=== PATIENT | female | born 1995 | race Caucasian/White ===

== ENCOUNTER 2017-07-14 05:13 | Emergency (ER) | payer OTHER ==
[2017-07-14 05:15] VITALS: BP 137/85
[2017-07-14] MEDS ORDERED: ONDANSETRON PF 4 MG/2 ML VIAL. ONE (05:25)
[2017-07-14] MEDS ORDERED: FAMOTIDINE 20 MG/2 ML VIAL ONE (05:26)
--- NOTE | 2017-07-14 05:28 | ED.ADGEN ---
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 She reports multiple episodes of vomiting and now dry heaves. Her significant other also ate same food but he is not sick. Patient is exposed to multiple patient's that are ill. No recent travel. History of immunosuppression. No history of diarrhea-patient reports she is usually constipated. No history of abdomen surgeries. Pain to the abdomen is generalized. Review of Systems Review of Systems Constitutional: Denies fever or chills [] Eyes: Denies change in visual acuity, redness, or eye pain [] HENT: Denies nasal congestion or sore throat [] Respiratory: Denies cough or shortness of breath [] Cardiovascular: No additional information not addressed in HPI [] GI: History of abdominal pain, nausea, vomiting, and constipation. : Denies dysuria or hematuria [] Musculoskeletal: Denies back pain or joint pain [] Integument: Denies rash or skin lesions [] Neurologic: Denies headache, focal weakness or sensory changes [] Endocrine: Denies polyuria or polydipsia [] All other systems were reviewed and found to be within normal limits, except as documented in this note. Family History Family History Noncontributory Current Medications Current Medications Current Medications Medications (Trade) Dose Ordered Sig/Gil Start Time Stop Time Status Last Admin Dose Admin Diphenhydramine HCl (Benadryl) 25 mg 1X ONCE 07/14/17 06:15 07/14/17 06:16 DC 07/14/17 06:04 25 MG Famotidine (Pepcid Vial) 20 mg 1X ONCE 07/14/17 05:45 07/14/17 06:03 DC 07/14/17 06:00 20 MG Ketorolac Tromethamine (Toradol) 30 mg 1X ONCE 07/14/17 06:15 07/14/17 06:16 DC 07/14/17 06:05 30 MG Lactated Ringer's 1,000 ml @ 1,000 mls/hr Q1H 07/14/17 05:45 07/14/17 06:03 DC 07/14/17 05:35 1,000 MLS/HR Ondansetron HCl (Zofran) 8 mg 1X ONCE 07/14/17 05:45 07/14/17 06:03 DC 07/14/17 06:00 8 MG Trimethoprim/ Sulfamethoxazole (Bactrim Ds) 1 tab 1X ONCE 07/14/17 07:00 07/14/17 07:01 DC Allergies Allergies Allergies Coded Allergies Type Severity Reaction Last Updated Verified zolmitriptan Allergy Intermediate 07/14/17 Yes No known drug allergies Physical Exam Physical Exam Constitutional: Well developed, well nourished, moderate distress, non-toxic appearance. [] HENT: Normocephalic, atraumatic, bilateral external ears normal, oropharynx dry, , no oral exudates, nose normal. [] Eyes: PERRLA, EOMI, conjunctiva normal, no discharge. [] Neck: Normal range of motion, no tenderness, supple, no stridor. [] Cardiovascular:Heart rate regular rhythm, no murmur [] Lungs & Thorax: Bilateral breath sounds equal at apexes on auscultation [] Abdomen: Bowel sounds hyperactive,, soft, generalized tenderness, no masses, no pulsatile masses. No rebound Skin: Warm, dry, no erythema, no rash. [] Back: No tenderness, no CVA tenderness. [] Extremities: No tenderness, no cyanosis, no clubbing, ROM intact, no edema. Negative heel tap and obturator sign Neurologic: Alert and oriented X 3, normal motor function, normal sensory function, no focal deficits noted. [] Psychologic: Affect anxious ,judgement normal, mood normal. [] Current Patient Data Vital Signs Vital Signs Date Time Temp Pulse Resp B/P (MAP) Pulse Ox O2 Delivery O2 Flow Rate FiO2 07/14/17 05:15 98.6 122 20 100 Room Air Lab Results Laboratory Tests Test 07/14/17 05:25 07/14/17 05:40 07/14/17 06:53 Urine Collection Type Unknown Urine Color Yellow Urine Clarity Clear Urine pH 6.5 Urine Specific [place] 1.020 Urine Protein Neg (NEG-TRACE) Urine Glucose (UA) Neg mg/dL (NEG) Urine Ketones (Stick) Neg mg/dL (NEG) Urine Blood Small (NEG) Urine Nitrite Neg (NEG) Urine Bilirubin Neg (NEG) Urine Urobilinogen Dipstick 0.2 mg/dL (0.2 mg/dL) Urine Leukocyte Esterase Neg (NEG) Urine RBC 1-2 /HPF (0-2) Urine WBC 0 /HPF (0-4) Urine Squamous Epithelial Cells Mod /LPF Urine Bacteria Mod /HPF (0-FEW) Urine Hyaline Casts Occ /HPF Urine Mucus Slight /LPF White Blood Count 17.2 x10^3/uL (4.0-11.0) H Red Blood Count 5.54 x10^6/uL (3.50-5.40) H Hemoglobin 15.0 g/dL (12.0-15.5) Hematocrit 44.9 % (36.0-47.0) Mean Corpuscular Volume 81 fL (79-100) Mean Corpuscular Hemoglobin 27 pg (25-35) Mean Corpuscular Hemoglobin Concent 34 g/dL (31-37) Red Cell Distribution Width 13.2 % (11.5-14.5) Platelet Count 302 x10^3/uL (140-400) Neutrophils (%) (Auto) 79 % (31-73) H Lymphocytes (%) (Auto) 9 % (24-48) L Monocytes (%) (Auto) 10 % (0-9) H Eosinophils (%) (Auto) 1 % (0-3) Basophils (%) (Auto) 0 % (0-3) Neutrophils # (Auto) 13.6 x10^3uL (1.8-7.7) H Lymphocytes # (Auto) 1.6 x10^3/uL (1.0-4.8) Monocytes # (Auto) 1.8 x10^3/uL (0.0-1.1) H Eosinophils # (Auto) 0.1 x10^3/uL (0.0-0.7) Basophils # (Auto) 0.0 x10^3/uL (0.0-0.2) Segmented Neutrophils % 84 % (35-66) H Band Neutrophils % 2 % (0-9) Lymphocytes % 7 % (24-48) L Monocytes % 6 % (0-10) Eosinophils % 1 % (0-5) Platelet Estimate Adequate (ADEQUATE) Sodium Level 142 mmol/L (136-145) Potassium Level 3.5 mmol/L (3.5-5.1) Chloride Level 104 mmol/L (98-107) Carbon Dioxide Level 28 mmol/L (21-32) Anion Gap 10 (6-14) Blood Urea Nitrogen 10 mg/dL (7-20) Creatinine 0.7 mg/dL (0.6-1.0) Estimated GFR (Cockcroft-Gault) 103.7 Glucose Level 107 mg/dL (70-99) H Calcium Level 9.3 mg/dL (8.5-10.1) Total Bilirubin 0.2 mg/dL (0.2-1.0) Direct Bilirubin 0.1 mg/dL (0.0-0.2) Aspartate Amino Transferase (AST) 56 U/L (15-37) H Alanine Aminotransferase (ALT) 133 U/L (14-59) H Alkaline Phosphatase 72 U/L (46-116) Total Protein 8.2 g/dL (6.4-8.2) Albumin 4.0 g/dL (3.4-5.0) Lipase 146 U/L (73-393) POC Urine HCG, Qualitative hcg negative (Negative) EKG EKG [] Radiology/Procedures Radiology/Procedures [] Course & Med Decision Making Course & Med Decision Making Pertinent Labs and Imaging studies reviewed. (See chart for details). . Labs pending . She had push clear fluids. No solids no milk products for 2 days. Allow bowel rest. Take Zofran 8 mg up 4 times a day for nausea and vomiting. May take Tylenol and ibuprofen pain. Follow-up pending cultures. Bactrim DS twice a day for 7 days. Return if any concerns. [] Final Impression Final Impression 1. Nausea Vomiting- gastroenteritis 2. Abdomen Pain[] 3. Urinary tract infection. 4. Elevated LFTs 5. Leukocytosis 6. Dehydration Problems: Dragon Disclaimer Dragon Disclaimer This electronic medical record was generated, in whole or in part, using a voice recognition dictation system. LETITIA AMAYA MD Jul 14, 2017 05:27
[2017-07-14] MEDS ORDERED: diphenhydrAMINE 50 MG/ML VIAL ONE (05:29)
[2017-07-14] MEDS ORDERED: ONDANSETRON PF 4 MG/2 ML VIAL. IV ONE (05:45)
[2017-07-14] MEDS ORDERED: IV RINGERS SOLUTION,LACTATED 1,000 ML IV SCH (05:45)
[2017-07-14] MEDS ORDERED: FAMOTIDINE 20 MG/2 ML VIAL IVP ONE (05:45)
[2017-07-14] MEDS ORDERED: KETOROLAC 30 MG/ML VIAL. ONE (05:51)
[2017-07-14 06:11] LABS: BASO % 0 % (0-3); EOS # 0.1 x10^3/uL (0.0-0.7); EOS % 1 % (0-3); HEMATOCRIT 44.9 % (36.0-47.0); LYMPH # 1.6 x10^3/uL (1.0-4.8); LYMPH % 9 % (24-48); MEAN CORPUSCULAR HEMOGLOBIN 27 pg (25-35); MEAN CORPUSCULAR HGB CONC 34 g/dL (31-37); MEAN CORPUSCULAR VOLUME 81 fL (79-100); MONO # 1.8 x10^3/uL (0.0-1.1); MONO % 10 % (0-9); NEUT # 13.6 x10^3uL (1.8-7.7); NEUT % 79 % (31-73); PLATELET COUNT 302 x10^3/uL (140-400); RED BLOOD COUNT 5.54 x10^6/uL (3.50-5.40); RED CELL DISTRIBUTION WIDTH 13.2 % (11.5-14.5); WHITE BLOOD COUNT 17.2 x10^3/uL (4.0-11.0)
[2017-07-14] MEDS ORDERED: diphenhydrAMINE 50 MG/ML VIAL IVP ONE (06:15)
[2017-07-14] MEDS ORDERED: KETOROLAC 30 MG/ML VIAL. IV ONE (06:15)
[2017-07-14 06:20] LABS: CALCIUM 9.3 mg/dL (8.5-10.1); CREATININE 0.7 mg/dL (0.6-1.0); DIRECT BILIRUBIN 0.1 mg/dL (0.0-0.2); GFR 103.7; POTASSIUM 3.5 mmol/L (3.5-5.1); TOTAL BILIRUBIN 0.2 mg/dL (0.2-1.0); TOTAL PROTEIN 8.2 g/dL (6.4-8.2)
[2017-07-14 06:26] LABS: BACTERIA,URINE MOD /HPF (0-FEW); BILIRUBIN,URINE NEG (NEG); CLARITY,URINE CLEAR; COLOR,URINE YELLOW; GLUCOSE,URINE NEG (NEG); HYALINE CASTS, URINE OCC /HPF; NITRITE,URINE NEG (NEG); SQUAMOUS EPITHELIAL CELL,UR MOD /LPF; UROBILINOGEN,URINE 0.2 mg/dL (0.2 mg/dL); WBC,URINE 0 /HPF (0-4)
[2017-07-14] MEDS ORDERED: SULF1TAB24 PO (06:38)
[2017-07-14] MEDS ORDERED: HYDR-79 PO (06:38)
[2017-07-14] MEDS ORDERED: ONDA8TAB12 PO (06:38)
[2017-07-14] MEDS ORDERED: SMZ/TMP 800/160MG TABLET. PO ONE (07:00)
[2017-07-14 07:17] LABS: % BANDS 2 % (0-9); % EOS 1 % (0-5); % LYMPHS 7 % (24-48); % MONOS 6 % (0-10); % SEGS 84 % (35-66); PLT ESTIMATE ADEQUATE (ADEQUATE)
[2017-07-15 07:15] LABS: HCV ANTIBODY <0.1 s/co ratio (0.0-0.9); HEP A IGM ABDY Negative (Negative)
== END 2017-07-14 06:49 | disposition home or self-care (01) ==
LOC: ER 05:13
DX: K52.9 Noninfective gastroenteritis and colitis, unspecified (principal); N39.0 Urinary tract infection, site not specified; E86.0 Dehydration; R79.89 Other specified abnormal findings of blood chemistry; D72.829 Elevated white blood cell count, unspecified; Z88.8 Allergy status to other drugs, medicaments and biological substances
CPT/HCPCS: 36415; 80048; 80074; 80076; 81001; 81025; 83690; 85007; 85025; 87086; 96361; 96374; 96375; 99284; J1200; J1885; J2405; J7120; S0028

== ENCOUNTER 2017-10-07 17:35 | Emergency (ER) | payer OTHER ==
[~2017-10-07] VITALS: Ht 160 cm; Wt 76.7 kg
[~2017-10-07 17:35] MED LIST: HYDR-79 PO; ONDA8TAB12 PO; SULF1TAB24 PO
--- NOTE | 2017-10-07 18:11 | EKG ---
[address] [address] Test Date: 2017-10-07 Test Time: 17:44:49 Pat Name: JAYLENE WONG Department: Room: Gender: F [employer] Operator: MICHEL : 1995 Requested By: DALI WOOD Order Number: [id number] Reading MD: Measurements Intervals [place] Rate: 87 P: 28 WI: 146 QRS: 9 QRSD: 86 T: 19 QT: 424 QTc: 511 Interpretive Statements SINUS RHYTHM PROLONGED QT NO SPECIFIC ECG ABNORMALITIES RI6.01 No previous ECG available for comparison
[2017-10-07] MEDS ORDERED: IV NORMAL SALINE 1,000ML 1,000 ML IV ONE (18:15)
[2017-10-07] MEDS ORDERED: diphenhydrAMINE 50 MG/ML VIAL IVP ONE (18:30)
[2017-10-07] MEDS ORDERED: DEXAMETHASONE SOD PHOS 10 MG/ML VIAL IV ONE (18:30)
[2017-10-07] MEDS ORDERED: METOCLOPRAMIDE HCL 10 MG/2 ML VIAL. IV ONE (18:30)
--- NOTE | 2017-10-07 18:30 | PHYS DOC ---
Past History Past Medical History: Constipation, Other Past Surgical History: Tonsillectomy Alcohol Use: None Drug Use: None Adult General Chief Complaint Chief Complaint: Palpitations HPI HPI Patient is a 22 year old F who presents with headache/palpitations/anxiety. Patient states she woke up this morning with a slight headache as a day progressive got worse. Patient went to move this afternoon and after the movie the patient stated she had an increased headache with heart palpitations and felt her heart racing. Patient states she has a history of anxiety however she does not think this is anxiety attack. Patient denies any fevers. Patient denies any cough/cold/congestion. Patient denies any chest pain or shortness of breath. Patient describes the headache as a frontal nonradiating in her vision is unaffected. Patient states she does have a history of headaches however has not been formally diagnosed with migraines. Patient states this headache is similar to her previous headaches. Patient states usually she takes ibuprofen and the headache goes away however she took some prior to the movie and it did not. Patient has no other complaints. Review of Systems Review of Systems GEN: Denies fevers, chills, sweats HEENT: Denies blurred vision, sore throat CV: Palpitations RESP: Denies shortness of air, cough GI: Denies n/v/d NEURO: Headache MSK: Denies weakness, joint pain/swelling All other systems were reviewed and found to be within normal limits, except as documented in this note. Current Medications Current Medications Current Medications Medications (Trade) Dose Ordered Sig/Gil Start Time Stop Time Status Last Admin Dose Admin Dexamethasone Sodium Phosphate (Decadron) 10 mg 1X ONCE 10/07/17 18:30 10/07/17 18:31 Diphenhydramine HCl (Benadryl) 50 mg 1X ONCE 10/07/17 18:30 10/07/17 18:31 Metoclopramide HCl (Reglan Vial) 10 mg 1X ONCE 10/07/17 18:30 10/07/17 18:31 Sodium Chloride 1,000 ml @ 1,000 mls/hr 1X ONCE 10/07/17 18:15 10/07/17 19:14 Allergies Allergies Allergies Coded Allergies Type Severity Reaction Last Updated Verified zolmitriptan Allergy Intermediate 07/14/17 Yes Physical Exam Physical Exam GEN.: No apparent distress. Alert and oriented. HEENT: Head is normocephalic, atraumatic, pupils were equal and reactive bilaterally, extraocular muscles are intact bilaterally NECK: Supple, no cervical lymphadenopathy LUNGS: CTAB. HEART: Tachycardia, S1, S2 present. Peripheral pulses intact ABDOMEN: Soft, nontender. Positive bowel sounds. EXTREMITIES: Without any cyanosis. NEUROLOGIC: Normal speech, normal tone, cranial nerves II through XII are grossly intact without any focal neurological deficits PSYCHIATRIC: Normal affect, normal mood. SKIN: No ulcerations Current Patient Data Vital Signs Laboratory Tests Test 10/07/17 17:50 White Blood Count 10.8 x10^3/uL Red Blood Count 5.56 x10^6/uL Hemoglobin 14.9 g/dL Hematocrit 45.6 % Mean Corpuscular Volume 82 fL Mean Corpuscular Hemoglobin 27 pg Mean Corpuscular Hemoglobin Concent 33 g/dL Red Cell Distribution Width 14.0 % Platelet Count 333 x10^3/uL Neutrophils (%) (Auto) 38 % Lymphocytes (%) (Auto) 50 % Monocytes (%) (Auto) 9 % Eosinophils (%) (Auto) 3 % Basophils (%) (Auto) 0 % Neutrophils # (Auto) 4.1 x10^3uL Lymphocytes # (Auto) 5.4 x10^3/uL Monocytes # (Auto) 0.9 x10^3/uL Eosinophils # (Auto) 0.3 x10^3/uL Basophils # (Auto) 0.0 x10^3/uL Platelet Estimate Pending D-Dimer (Vera) < 0.19 mg/L Sodium Level 143 mmol/L Potassium Level 4.1 mmol/L Chloride Level 102 mmol/L Carbon Dioxide Level 32 mmol/L Anion Gap 9 Blood Urea Nitrogen 13 mg/dL Creatinine 0.7 mg/dL Estimated GFR (Cockcroft-Gault) 103.7 BUN/Creatinine Ratio 19 Glucose Level 94 mg/dL Calcium Level 9.7 mg/dL Total Bilirubin 0.1 mg/dL Aspartate Amino Transf (AST/SGOT) 31 U/L Alanine Aminotransferase (ALT/SGPT) 77 U/L Alkaline Phosphatase 79 U/L Troponin I Quantitative < 0.017 ng/mL Total Protein 7.9 g/dL Albumin 4.2 g/dL Albumin/Globulin Ratio 1.1 Current Medications Medications (Trade) Dose Ordered Sig/Gil Route PRN Reason Start Time Stop Time Status Last Admin Dose Admin Sodium Chloride 1,000 ml @ 1,000 mls/hr 1X ONCE IV 10/07/17 18:15 10/07/17 19:14 10/07/17 18:31 Dexamethasone Sodium Phosphate (Decadron) 10 mg 1X ONCE IV 10/07/17 18:30 10/07/17 18:31 DC 10/07/17 18:32 Metoclopramide HCl (Reglan Vial) 10 mg 1X ONCE IV 10/07/17 18:30 10/07/17 18:31 DC 10/07/17 18:31 Diphenhydramine HCl (Benadryl) 50 mg 1X ONCE IVP 10/07/17 18:30 10/07/17 18:31 DC 10/07/17 18:31 Ketorolac Tromethamine (Toradol) 30 mg 1X ONCE IV 10/07/17 19:00 10/07/17 19:01 UNV 10/07/17 19:06 EKG EKG 1748: EKG shows normal sinus rhythm rate of 87 no STEMI[] Radiology/Procedures Radiology/Procedures Chest x-ray NAD CT scan of the head without contrast NAD[] Course & Med Decision Making Course & Med Decision Making Pertinent Labs and Imaging studies reviewed. (See chart for details) ED course: Patient was seen and examined emergency room cardiac workup was ordered along with a d-dimer, CT scan of the head, chest x-ray, EKG Patient was updated on lab results and radiology results and reexamined in which she was feeling much better and her headache resolved and she felt less anxious and less palpitations. I recommended she follow up with her PCP in one to 2 days for further evaluation and management. I believe patient stable for discharge. MDM: After reviewing the chart, CC/HPI/PMH, physical exam, [lab results], [ radiological results], I do not believe the patient is having acute MT (HEART =1 ), PE, low suspicion for acute thoracic aortic dissection. I do not believe the patient has acute intracranial process warranting a lumbar puncture to rule out a subarachnoid bleed. I believe patient stable for discharge. Recommended short- term follow-up with PCP in one to 2 days. Additional verbal discharge instructions were provided to the patient and that if symptoms get worse or any new symptoms arise that are worrisome to the patient she is to return to the emergency room immediately [] Dragon Disclaimer Dragon Disclaimer This electronic medical record was generated, in whole or in part, using a voice recognition dictation system. Departure Departure: Impression: Primary Impression: Headache Additional Impression: Palpitations Disposition: 01 HOME, SELF-CARE Condition: IMPROVED Referrals: PCP,AGUSTIN (PCP) Patient Instructions: General Headache Without Cause, [id number], Palpitations, [id number] Additional Instructions: Please follow-up with your family doctor next one to 2 days for further evaluation and management and return if symptoms increase. Problem Qualifiers DALI WOOD DO Oct 07, 2017 18:30
[2017-10-07 18:35] LABS: BASO % 0 % (0-3); EOS # 0.3 x10^3/uL (0.0-0.7); EOS % 3 % (0-3); HEMATOCRIT 45.6 % (36.0-47.0); HEMOGLOBIN 14.9 g/dL (12.0-15.5); LYMPH # 5.4 x10^3/uL (1.0-4.8); LYMPH % 50 % (24-48); MEAN CORPUSCULAR HEMOGLOBIN 27 pg (25-35); MEAN CORPUSCULAR HGB CONC 33 g/dL (31-37); MEAN CORPUSCULAR VOLUME 82 fL (79-100); MONO # 0.9 x10^3/uL (0.0-1.1); MONO % 9 % (0-9); NEUT # 4.1 x10^3uL (1.8-7.7); NEUT % 38 % (31-73); PLATELET COUNT 333 x10^3/uL (140-400); RED BLOOD COUNT 5.56 x10^6/uL (3.50-5.40); WHITE BLOOD COUNT 10.8 x10^3/uL (4.0-11.0)
[2017-10-07 18:42] LABS: ALBUMIN 4.2 g/dL (3.4-5.0); ALBUMIN/GLOBULIN RATIO 1.1 (1.0-1.7); CALCIUM 9.7 mg/dL (8.5-10.1); CREATININE 0.7 mg/dL (0.6-1.0); GFR 103.7; POTASSIUM 4.1 mmol/L (3.5-5.1); TOTAL BILIRUBIN 0.1 mg/dL (0.2-1.0); TOTAL PROTEIN 7.9 g/dL (6.4-8.2)
--- NOTE | 2017-10-07 18:58 | RAD ---
EXAM: Head CT without contrast. HISTORY: Palpitations. Headache. TECHNIQUE: Computed tomographic images of the head were obtained without contrast. *One or more of the following individualized dose reduction techniques were utilized for this examination: 1. Automated exposure control. 2. Adjustment of the mA and/or kV according to patient size. 3. Use of iterative reconstruction technique. COMPARISON: None. FINDINGS: There is no acute or subacute extra-axial or intraparenchymal hemorrhage. There is no mass effect or midline shift. There is no hydrocephalus. The trent-white matter differentiation pattern is intact. The visualized portions of the orbits, paranasal sinuses and mastoid air cells are unremarkable. No suspicious calvarial lesion is seen. IMPRESSION: No acute intracranial findings. Electronically signed by: Aliya Jenkins MD (10/07/2017 6:55 PM) [facility]
[2017-10-07] MEDS ORDERED: KETOROLAC 30 MG/ML VIAL. IV ONE (19:00)
[2017-10-07] MEDS ORDERED: KETOROLAC 30 MG/ML VIAL. ONE (19:02)
[2017-10-07 19:17] LABS: BACTERIA,URINE FEW /HPF (0-FEW); BILIRUBIN,URINE NEG (NEG); CLARITY,URINE HAZY; COLOR,URINE YELLOW; GLUCOSE,URINE NEG (NEG); NITRITE,URINE NEG (NEG); UROBILINOGEN,URINE 0.2 mg/dL (0.2 mg/dL)
[2017-10-07 19:18] LABS: AMORPHOUS SEDIMENT,UR PRESENT /HPF; SQUAMOUS EPITHELIAL CELL,UR MOD /LPF
[2017-10-07 19:23] VITALS: BP 135/87
[2017-10-07 20:29] LABS: % EOS 3 % (0-5); % LYMPHS 40 % (24-48); % MONOS 9 % (0-10); % SEGS 33 % (35-66)
[2017-10-07 20:32] LABS: PLT ESTIMATE ADEQUATE (ADEQUATE)
[2017-10-07 20:34] LABS: % ATYL 15 % (0-0)
--- NOTE | 2017-10-08 08:09 | RAD ---
Portable AP view CXR: Clinical indications: Palpitations. Headache today. Comparison: None available. Findings: No acute lung infiltrate or pleural effusion or pulmonary edema or lung mass or pneumothorax is seen. The heart size, pulmonary vasculature, mediastinum and both heriberto are unremarkable. Scoliosis is seen. Impression: No acute radiographic abnormality is seen.
== END 2017-10-07 19:25 | disposition home or self-care (01) ==
LOC: ER 17:35
DX: R51 Headache (principal); R00.2 Palpitations; F41.9 Anxiety disorder, unspecified; Z88.8 Allergy status to other drugs, medicaments and biological substances
CPT/HCPCS: 36415; 70450; 71045; 80053; 81001; 84484; 85007; 85025; 85379; 93005; 96361; 96374; 96375; 99285; J1100; J1200; J1885; J2765; J7030

== ENCOUNTER 2018-05-22 17:16 | Emergency (ER) | payer OTHER ==
[~2018-05-22] VITALS: Ht 160 cm; Wt 74.8 kg
[2018-05-22 17:33] VITALS: BP 160/82
--- NOTE | 2018-05-22 17:43 | PHYS DOC ---
Past History Past Medical History: Constipation, Other Past Surgical History: Tonsillectomy Smoking: Non-smoker Alcohol Use: None Drug Use: None Adult General Chief Complaint Chief Complaint: LOWER EXT PAIN HPI HPI Patient is a 23 year old female who presents with complaining of intermittent episodes of left thigh pain for 3 weeks as a discomfort feeling with cramping and pressure in lateral side of her thigh without relation to activity. Patient denies injury, history of DVT and PE, fever and chills, focal neuro deficit, history of the same pain. Patient rated her pain 4/10. Review of Systems Review of Systems Constitutional: Denies fever or chills [] Eyes: Denies change in visual acuity, redness, or eye pain [] HENT: Denies nasal congestion or sore throat [] Respiratory: Denies cough or shortness of breath [] Cardiovascular: No additional information not addressed in HPI [] GI: Denies abdominal pain, nausea, vomiting, bloody stools or diarrhea [] : Denies dysuria or hematuria [] Musculoskeletal: Denies back pain or joint pain [] Integument: Denies rash or skin lesions [] Neurologic: Denies headache, focal weakness or sensory changes [] Endocrine: Denies polyuria or polydipsia [] All other systems were reviewed and found to be within normal limits, except as documented in this note. Allergies Allergies Allergies Coded Allergies Type Severity Reaction Last Updated Verified zolmitriptan Allergy Intermediate 07/14/17 Yes Physical Exam Physical Exam Constitutional: Well developed, well nourished, no acute distress, non-toxic appearance. [] HENT: Normocephalic, atraumatic Eyes: PERRLA, EOMI, conjunctiva normal, no discharge. [] Neck: Normal range of motion, no tenderness, supple, no stridor. [] Cardiovascular:Heart rate regular rhythm, no murmur [] Lungs & Thorax: Bilateral breath sounds clear to auscultation [] Abdomen: Bowel sounds normal, soft, no tenderness, no masses, no pulsatile masses. [] Skin: Warm, dry, no erythema, no rash. [] Back: No tenderness, no CVA tenderness. [] Extremities: No tenderness, no deformity, no cyanosis, no clubbing, ROM intact, no edema. [] Neurologic: Alert and oriented X 3, normal motor function, normal sensory function, no focal deficits noted. [] Psychologic: Affect normal, judgement normal, mood normal. [] EKG EKG [] Radiology/Procedures Radiology/Procedures [] Impressions: EXAM: Left lower extremity venous Doppler. HISTORY: Left lower extremity pain/swelling. COMPARISON: None. FINDINGS: Grayscale and Doppler analysis of the left lower extremity deep venous system was performed with graded compression and augmentation. The common femoral, greater saphenous, superficial femoral, popliteal and calf veins were assessed. There is no evidence of deep venous thrombosis. At the site of pain along the left lateral thigh, no sonographic abnormality is identified. IMPRESSION: 1. No evidence of deep venous thrombosis. Electronically signed by: Miroslava Lobo MD (05/22/2018 6:59 PM) [facility] DICTATED AND SIGNED BY: TAMAR LOBO MD DATE: 05/22/18 185 CC: BERTIN MILLAN DO; URBANO STARR MD; PCP,AGUSTIN Course & Med Decision Making Course & Med Decision Making Pertinent Labs and Imaging studies reviewed. (See chart for details) The patient's ultrasound was negative for DVT. The evaluation over the area of pain does not reveal any mass or other abnormal sonographic finding. Based on the patient's description of pain in her physical exam, seems like this could be a trochanteric bursitis left hip. I will give her 50 mg of prednisone in the ED followed by 4 more days to see if this improves her pain. She is stable for discharge at this time. [] Dragon Disclaimer Dragon Disclaimer This electronic medical record was generated, in whole or in part, using a voice recognition dictation system. Departure Departure: Impression: Primary Impression: Left thigh pain Referrals: PCPAGUSTIN (PCP) URBANO STARR MD May 22, 2018 17:43 BERTIN MILLAN DO May 22, 2018 19:15
[2018-05-22 18:05] LABS: BASO % 0 % (0-3); EOS # 0.2 x10^3/uL (0.0-0.7); EOS % 2 % (0-3); HEMATOCRIT 43.3 % (36.0-47.0); HEMOGLOBIN 14.3 g/dL (12.0-15.5); LYMPH # 3.2 x10^3/uL (1.0-4.8); LYMPH % 38 % (24-48); MEAN CORPUSCULAR HEMOGLOBIN 27 pg (25-35); MEAN CORPUSCULAR HGB CONC 33 g/dL (31-37); MEAN CORPUSCULAR VOLUME 82 fL (79-100); MONO # 0.6 x10^3/uL (0.0-1.1); MONO % 7 % (0-9); NEUT # 4.5 x10^3uL (1.8-7.7); NEUT % 53 % (31-73); PLATELET COUNT 339 x10^3/uL (140-400); RED BLOOD COUNT 5.29 x10^6/uL (3.50-5.40); RED CELL DISTRIBUTION WIDTH 13.4 % (11.5-14.5); WHITE BLOOD COUNT 8.5 x10^3/uL (4.0-11.0)
[2018-05-22 18:08] LABS: CREATININE 0.8 mg/dL (0.6-1.0); GFR 88.1; POTASSIUM 3.5 mmol/L (3.5-5.1)
--- NOTE | 2018-05-22 19:02 | RAD ---
EXAM: Left lower extremity venous Doppler. HISTORY: Left lower extremity pain/swelling. COMPARISON: None. FINDINGS: Grayscale and Doppler analysis of the left lower extremity deep venous system was performed with graded compression and augmentation. The common femoral, greater saphenous, superficial femoral, popliteal and calf veins were assessed. There is no evidence of deep venous thrombosis. At the site of pain along the left lateral thigh, no sonographic abnormality is identified. IMPRESSION: 1. No evidence of deep venous thrombosis. Electronically signed by: Miroslava Lobo MD (05/22/2018 6:59 PM) [facility]
[2018-05-22] MEDS ORDERED: PRED50TA PO (19:31)
[2018-05-22] MEDS ORDERED: predniSONE 10 MG TABLET PO ONE (20:00)
== END 2018-05-22 19:42 | disposition home or self-care (01) ==
LOC: ER 17:16
DX: M79.652 Pain in left thigh (principal); Z88.8 Allergy status to other drugs, medicaments and biological substances
CPT/HCPCS: 36415; 80048; 81025; 85025; 93971; 99285-25

== ENCOUNTER 2018-10-12 10:44 | Emergency (ER) | payer OTHER ==
[~2018-10-12] VITALS: Ht 160 cm; Wt 76.7 kg
[~2018-10-12 10:44] MED LIST changes: +HYDR-1179 PO; -HYDR-79 PO; +PRED50TA PO
[2018-10-12] MEDS ORDERED: IV NORMAL SALINE 1,000ML 1,000 ML IV SCH (11:30)
[2018-10-12] MEDS ORDERED: KETOROLAC 30 MG/ML VIAL. IV ONE (11:45)
[2018-10-12 11:51] LABS: BASO # 0.1 x10^3/uL (0.0-0.2); BASO % 1 % (0-3); EOS # 0.2 x10^3/uL (0.0-0.7); EOS % 2 % (0-3); HEMATOCRIT 42.8 % (36.0-47.0); HEMOGLOBIN 14.1 g/dL (12.0-15.5); LYMPH # 4.8 x10^3/uL (1.0-4.8); LYMPH % 37 % (24-48); MEAN CORPUSCULAR HEMOGLOBIN 27 pg (25-35); MEAN CORPUSCULAR HGB CONC 33 g/dL (31-37); MEAN CORPUSCULAR VOLUME 82 fL (79-100); MONO # 1.2 x10^3/uL (0.0-1.1); MONO % 10 % (0-9); NEUT # 6.7 x10^3uL (1.8-7.7); NEUT % 52 % (31-73); PLATELET COUNT 331 x10^3/uL (140-400); RED BLOOD COUNT 5.22 x10^6/uL (3.50-5.40); RED CELL DISTRIBUTION WIDTH 13.3 % (11.5-14.5)
[2018-10-12 11:55] LABS: CALCIUM 9.4 mg/dL (8.5-10.1); CREATININE 0.7 mg/dL (0.6-1.0); GFR 102.8; POTASSIUM 3.7 mmol/L (3.5-5.1)
[2018-10-12 12:00] LABS: BACTERIA,URINE FEW /HPF (0-FEW); BILIRUBIN,URINE NEG (NEG); CLARITY,URINE HAZY; COLOR,URINE YELLOW; GLUCOSE,URINE NEG (NEG); NITRITE,URINE NEG (NEG); RBC,URINE OCC /HPF (0-2); SQUAMOUS EPITHELIAL CELL,UR FEW /LPF; UROBILINOGEN,URINE 0.2 mg/dL (0.2 mg/dL); WBC,URINE OCC /HPF (0-4)
--- NOTE | 2018-10-12 12:42 | PHYS DOC ---
Past History Past Medical History: Constipation, Migraines Past Surgical History: Tonsillectomy Smoking: Non-smoker Alcohol Use: Rarely Drug Use: None Adult General Chief Complaint Chief Complaint: FEVER HPI HPI Patient is a 23 year old female who presents with complaining of fever and headache. Patient states she had a painful lesion in sacral area that started 6 days ago and was seen at [facility] and diagnosed with cellulitis and treated with Keflex and [employer]. Patient complaining of fever as high as 102.7 since yesterday with headache that usually happen during episodes of fever for her. Patient states she took [employer] and 2 others doses of Tylenol today with partial improvement of her pain. Patient rated her pain 5-6/10. Patient denies urinary symptoms, vomiting, neck pain, diarrhea and constipation, vaginal bleeding or discharge, cough and congestion, flulike symptom. Patient states she tried to get and her LMP was about 30 days ago. Review of Systems Review of Systems Constitutional: Reports fever Eyes: Denies change in visual acuity, redness, or eye pain [] HENT: Denies nasal congestion or sore throat [] Respiratory: Denies cough or shortness of breath [] Cardiovascular: No additional information not addressed in HPI [] GI: Denies abdominal pain, nausea, vomiting, bloody stools or diarrhea [] : Denies dysuria or hematuria [] Musculoskeletal: Denies back pain or joint pain [] Integument: Denies rash, reports skin lesions [] Neurologic: Reports headache, denies focal weakness or sensory changes [] Endocrine: Denies polyuria or polydipsia [] All other systems were reviewed and found to be within normal limits, except as documented in this note. Current Medications Current Medications Current Medications Medications (Trade) Dose Ordered Sig/Gil Start Time Stop Time Status Last Admin Dose Admin Ketorolac Tromethamine (Toradol 30mg Vial) 30 mg 1X ONCE 10/12/18 11:45 10/12/18 11:46 DC 10/12/18 11:54 30 MG Sodium Chloride 1,000 ml @ 1,000 mls/hr Q1H 10/12/18 11:30 10/12/18 12:29 DC 10/12/18 11:52 1,000 MLS/HR Allergies Allergies Allergies Coded Allergies Type Severity Reaction Last Updated Verified zolmitriptan Allergy Intermediate 07/14/17 Yes Physical Exam Physical Exam Constitutional: Well developed, well nourished, mild distress, non-toxic appearance, afebrile. [] HENT: Normocephalic, atraumatic, oropharynx moist, no oral exudates, nose normal. [] Eyes: PERRLA, EOMI, conjunctiva normal, no discharge. [] Neck: Normal range of motion, no tenderness, supple, no stridor. [] Cardiovascular:Heart rate regular rhythm, no murmur [] Lungs & Thorax: Bilateral breath sounds clear to auscultation [] Abdomen: Bowel sounds normal, soft, no tenderness, no masses, no pulsatile masses. Erythema and mild edema and tenderness in left side of sacral area without sign of fluctuation.] Skin: Warm, dry, no erythema, no rash. [] Back: No tenderness, no CVA tenderness. [] Extremities: No tenderness, no cyanosis, no clubbing, ROM intact, no edema. [] Neurologic: Alert and oriented X 3, normal motor function, normal sensory function, no focal deficits noted. [] Psychologic: Affect normal, judgement normal, mood normal. [] Current Patient Data Vital Signs Vital Signs Date Time Temp Pulse Resp B/P (MAP) Pulse Ox O2 Delivery O2 Flow Rate FiO2 10/12/18 11:22 100 16 130/90 (103) 100 Room Air 10/12/18 10:50 98.8 Lab Results Laboratory Tests Test 10/12/18 11:17 10/12/18 11:24 10/12/18 11:29 Urine Collection Type Unknown Urine Color Yellow Urine Clarity Hazy Urine pH 6.0 Urine Specific [place] 1.010 Urine Protein Neg (NEG-TRACE) Urine Glucose (UA) Neg mg/dL (NEG) Urine Ketones (Stick) Neg mg/dL (NEG) Urine Blood Small (NEG) Urine Nitrite Neg (NEG) Urine Bilirubin Neg (NEG) Urine Urobilinogen Dipstick 0.2 mg/dL (0.2 mg/dL) Urine Leukocyte Esterase Neg (NEG) Urine RBC Occ /HPF (0-2) Urine WBC Occ /HPF (0-4) Urine Squamous Epithelial Cells Few /LPF Urine Bacteria Few /HPF (0-FEW) White Blood Count 13.0 x10^3/uL (4.0-11.0) H Red Blood Count 5.22 x10^6/uL (3.50-5.40) Hemoglobin 14.1 g/dL (12.0-15.5) Hematocrit 42.8 % (36.0-47.0) Mean Corpuscular Volume 82 fL (79-100) Mean Corpuscular Hemoglobin 27 pg (25-35) Mean Corpuscular Hemoglobin Concent 33 g/dL (31-37) Red Cell Distribution Width 13.3 % (11.5-14.5) Platelet Count 331 x10^3/uL (140-400) Neutrophils (%) (Auto) 52 % (31-73) Lymphocytes (%) (Auto) 37 % (24-48) Monocytes (%) (Auto) 10 % (0-9) H Eosinophils (%) (Auto) 2 % (0-3) Basophils (%) (Auto) 1 % (0-3) Neutrophils # (Auto) 6.7 x10^3uL (1.8-7.7) Lymphocytes # (Auto) 4.8 x10^3/uL (1.0-4.8) Monocytes # (Auto) 1.2 x10^3/uL (0.0-1.1) H Eosinophils # (Auto) 0.2 x10^3/uL (0.0-0.7) Basophils # (Auto) 0.1 x10^3/uL (0.0-0.2) Sodium Level 138 mmol/L (136-145) Potassium Level 3.7 mmol/L (3.5-5.1) Chloride Level 102 mmol/L (98-107) Carbon Dioxide Level 27 mmol/L (21-32) Anion Gap 9 (6-14) Blood Urea Nitrogen 10 mg/dL (7-20) Creatinine 0.7 mg/dL (0.6-1.0) Estimated GFR (Cockcroft-Gault) 102.8 Glucose Level 97 mg/dL (70-99) Lactic Acid Level 1.6 mmol/L (0.4-2.0) Calcium Level 9.4 mg/dL (8.5-10.1) POC Urine HCG, Qualitative hcg negative (Negative) EKG EKG [] Radiology/Procedures Radiology/Procedures [address] [address] IMAGING REPORT Signed PATIENT: JAYLENE WILKES ACCOUNT: [id number] : 1995 LOCATION: ER AGE: 23 SEX: F EXAM STATUS: REG ER ORD. PHYSICIAN: URBANO STARR MD REASON: sacral tenderness and possible abscess PROCEDURE: PELVIS LIMITED OR FOLLOW UP Examination: Ultrasound pelvis limited HISTORY: History of sacral tenderness, abscess COMPARISON: None available. Findings/ impression: There is a complex appearing fluid collection identified in the soft tissue overlying the sacral region measuring 2.8 x 1.8 1.8 cm with increased vascular flow in the region surrounding this fluid collection , suspicious for an abscess. Electronically signed by: Vince Diaz MD (10/12/2018 1:56 PM) [id number] DICTATED AND SIGNED BY: VINCE DIAZ MD DATE: 10/12/18 3950 CC: LUCA STEIN DO; URBANO STARR MD ~ Course & Med Decision Making Course & Med Decision Making Pertinent Labs and Imaging studies reviewed. (See chart for details) Evaluation of patient in ER showed 23-year-old female patient with sacral abscess that did not get better with Keflex given 3 days ago. Patient was afebrile in ER. Patient was consulted 13,000 and treated with IV fluid, Toradol , Rocephin and clindamycin, Zofran and fentanyl. After obtaining ultrasound and showing abscess 2x1 cm abscess which was drained. Patient was advised to continue Keflex and follow up with her primary care physician in 2 or 3 days. Dragon Disclaimer Dragon Disclaimer This electronic medical record was generated, in whole or in part, using a voice recognition dictation system. Departure Departure: Impression: Primary Impression: Abscess of sacrum Additional Impression: Headache Disposition: 01 HOME, SELF-CARE (at 1459) Condition: IMPROVED Referrals: LUCA STEIN DO (PCP) Patient Instructions: Abscess, Abscess, Care After Additional Instructions: Drink plenty of liquids Follow-up with your primary care physician in 3-5 days Return to ER if not getting better Continue current medication Scripts Hydrocodone Bit/Acetaminophen (NORCO 5-325 TABLET) 1 Each Tablet 1 TAB PO PRN Q6HRS PRN for PAIN, #10 TAB 0 Refills Prov: URBANO STARR MD 10/12/18 Incision and Drainage Indication: sacral abscess Procedure: The patient was positioned appropriately and the skin over the incision site was prepped with alcohol.. Local anesthesia was 1% lidocaine. An 1 cm incision was then made over the left coleman-sacral area and small amount of pus was drained. and material was expressed. Loculations were removed with Q- tip and the drainage cavity was then irrigated with normal saline.. The patient s tetanus status is up-to-date The patient tolerated the procedure [TOLERATED:]. Complications: None Problem Qualifiers URBANO STARR MD Oct 12, 2018 12:42
[2018-10-12] MEDS ORDERED: CLINDAMYCIN 600MG PREMIX 50 ML IV ONE (13:15)
[2018-10-12] MEDS ORDERED: IV NORMAL SALINE 50ML 50 ML ONE (13:37)
[2018-10-12] MEDS ORDERED: cefTRIAXone SODIUM 1 GM VIAL ONE (13:37)
--- NOTE | 2018-10-12 13:59 | RAD ---
Examination: Ultrasound pelvis limited HISTORY: History of sacral tenderness, abscess COMPARISON: None available. Findings/ impression: There is a complex appearing fluid collection identified in the soft tissue overlying the sacral region measuring 2.8 x 1.8 1.8 cm with increased vascular flow in the region surrounding this fluid collection , suspicious for an abscess. Electronically signed by: Vince Diaz MD (10/12/2018 1:56 PM) [facility]
[2018-10-12] MEDS ORDERED: LIDOCAINE 1% Multi-Dose 20 ML VIAL. IJ ONE (14:15)
[2018-10-12 14:25] VITALS: BP 125/75
[2018-10-12] MEDS ORDERED: ONDANSETRON PF 4 MG/2 ML VIAL. IV ONE (14:30)
[2018-10-12] MEDS ORDERED: HYDR-3165 PO (15:00)
== END 2018-10-12 15:13 | disposition home or self-care (01) ==
LOC: ER 10:44
DX: L02.212 Cutaneous abscess of back [any part, except buttock and flank] (principal); R51 Headache; G43.909 Migraine, unspecified, not intractable, without status migrainosus; Z88.8 Allergy status to other drugs, medicaments and biological substances
CPT/HCPCS: 10060; 36415; 76857; 80048; 81001; 81025; 83605; 85025; 87040; 96365; 96367; 96375; 99284; J0696; J1885; J2405; J3010; J3490; J7030

== ENCOUNTER → 2019-06-21 | Outpatient (CLI) | payer OTHER ==
[~2019-06-21] MED LIST changes: +HYDR-3165 PO
== END | disposition home or self-care (01) ==
LOC: LAB 07:11
PROVIDERS: ATTEND Nurse Practitioner Women's Health
DX: Z31.41 Encounter for fertility testing (principal)
CPT/HCPCS: 36415; 84144

== ENCOUNTER → 2019-07-17 | Outpatient (CLI) | payer OTHER | END | disposition home or self-care (01) | LOC: LAB 10:58 | PROVIDERS: ATTEND Nurse Practitioner Women's Health | DX: Z31.41 Encounter for fertility testing (principal) | CPT/HCPCS: 36415; 84144 ==

== ENCOUNTER → 2019-12-14 | Outpatient (CLI) | payer OTHER | LOC: LAB 07:03 | PROVIDERS: ATTEND Obstetrics & Gynecology Reproductive Endocrinology | DX: Z11.59 Encounter for screening for other viral diseases (principal); Z11.3 Encounter for screening for infections with a predominantly sexual mode of transmission | CPT/HCPCS: 36415; 86592; 86703; 86704; 86803; 87340; 87491; 87591 ==

== ENCOUNTER → 2019-12-25 | Outpatient (CLI) | payer OTHER | END | disposition home or self-care (01) | LOC: LAB 09:11 | PROVIDERS: ATTEND Internal Medicine Cardiovascular Disease | DX: Z01.818 Encounter for other preprocedural examination (principal); Z11.59 Encounter for screening for other viral diseases | CPT/HCPCS: 87635 ==

== ENCOUNTER 2020-02-24 07:37 | Emergency (ER) | payer OTHER ==
[~2020-02-24] VITALS: Ht 157.5 cm; Wt 81.0 kg
--- NOTE | 2020-02-24 09:13 | RAD ---
EXAM: Chest, 2 views. HISTORY: Chest pain. COMPARISON: None. FINDINGS: 2 views of the chest are obtained. There is no infiltrate, pleural effusion or pneumothorax. The heart is normal in size. IMPRESSION: No acute pulmonary finding. Electronically signed by: Aliya Jenkins MD (02/24/2020 9:10 AM) [id number]
[2020-02-24 09:52] LABS: BILIRUBIN,URINE NEG (NEG); CLARITY,URINE CLEAR; COLOR,URINE YELLOW; GLUCOSE,URINE NEG (NEG); UROBILINOGEN,URINE 0.2 mg/dL (0.2 mg/dL)
[2020-02-24 09:53] LABS: BACTERIA,URINE 0 /HPF (0-FEW); NITRITE,URINE NEG (NEG); RBC,URINE RARE /HPF (0-2); SQUAMOUS EPITHELIAL CELL,UR FEW /LPF; WBC,URINE OCC /HPF (0-4)
[2020-02-24 09:58] LABS: BASO % 0 % (0-3); EOS # 0.1 x10^3/uL (0.0-0.7); EOS % 2 % (0-3); HEMATOCRIT 40.3 % (36.0-47.0); HEMOGLOBIN 13.4 g/dL (12.0-15.5); LYMPH # 3.9 x10^3/uL (1.0-4.8); LYMPH % 45 % (24-48); MEAN CORPUSCULAR HEMOGLOBIN 28 pg (25-35); MEAN CORPUSCULAR HGB CONC 33 g/dL (31-37); MEAN CORPUSCULAR VOLUME 83 fL (79-100); MONO # 0.8 x10^3/uL (0.0-1.1); MONO % 9 % (0-9); NEUT # 3.8 x10^3uL (1.8-7.7); NEUT % 44 % (31-73); PLATELET COUNT 389 x10^3/uL (140-400); RED BLOOD COUNT 4.84 x10^6/uL (3.50-5.40); RED CELL DISTRIBUTION WIDTH 13.1 % (11.5-14.5); WHITE BLOOD COUNT 8.6 x10^3/uL (4.0-11.0)
--- NOTE | 2020-02-24 10:03 | PHYS DOC ---
Past History Past Medical History: Anxiety, Constipation Past Surgical History: Tonsillectomy Smoking: Non-smoker Alcohol Use: None Drug Use: None Adult General Chief Complaint Chief Complaint: GI PROBLEM HPI HPI Patient is a 24 year old female who presents with left lower chest pain. Patient states that this started yesterday and has been intermittent. It was worse this morning. Is worse if she moves or takes a deep breath. She denies any cough, URI symptoms, fever, constipation, diarrhea, nausea, vomiting, shortness of breath. She did recently do hormone therapy. She is on control for the first time in several years due to ongoing IVF. She states the pain feels sharp in nature. Review of Systems Review of Systems General: Denies fever, chills, sweats, fatigue Eyes: Denies drainage, blurred vision, eye redness HENT: Denies rhinorrhea, sore throat, earache Respiratory: Denies cough, shortness of breath, wheezing Cardiac: Denies edema, palpitations. Reports chest pain GI: Denies abdominal pain, Nausea, vomiting MSK: Denies back pain, neck pain Skin: Denies rash, jaundice Neuro: Denies headache, dizziness Psychiatric: Denies SI/HI Allergies Allergies Allergies Coded Allergies Type Severity Reaction Last Updated Verified zolmitriptan Allergy Intermediate 07/14/17 Yes Physical Exam Physical Exam General: Awake, alert, NAD. Well Nourished, well hydrated. Cooperative HEENT: Atraumatic, EOMI, PERRL, airway patent, moist oral mucosa Neck: Supple, trachea midline Respiratory: CTA bilaterally, normal effort, no wheezing/crackles CV: RRR, no murmur, cap refill <2 GI: Soft, nondistended, nontender, no masses MSK: No obvious deformities Skin: Warm, dry, intact Neuro: A&O x3, speech NL, sensory and motor grossly intact, no focal deficits Psych: Normal affect, normal mood, not suicidal or homicidal Current Patient Data Vital Signs Vital Signs Date Time Temp Pulse Resp B/P (MAP) Pulse Ox O2 Delivery O2 Flow Rate FiO2 02/24/20 07:50 98.5 94 18 150/93 (112) 100 Room Air Lab Results Laboratory Tests Test 02/24/20 09:15 02/24/20 09:30 Urine Collection Type Unknown Urine Color Yellow Urine Clarity Clear Urine pH 6.0 Urine Specific [place] 1.015 Urine Protein Neg (NEG-TRACE) Urine Glucose (UA) Neg mg/dL (NEG) Urine Ketones (Stick) Neg mg/dL (NEG) Urine Blood Trace (NEG) Urine Nitrite Neg (NEG) Urine Bilirubin Neg (NEG) Urine Urobilinogen Dipstick 0.2 mg/dL (0.2 mg/dL) Urine Leukocyte Esterase Neg (NEG) Urine RBC Rare /HPF (0-2) Urine WBC Occ /HPF (0-4) Urine Squamous Epithelial Cells Few /LPF Urine Bacteria 0 /HPF (0-FEW) POC Urine HCG, Qualitative hcg negative (Negative) EKG EKG [] Radiology/Procedures Radiology/Procedures [] Course & Med Decision Making Course & Med Decision Making Pertinent Labs and Imaging studies reviewed. (See chart for details) Patient is a 24-year-old female who presents to the emergency room complaining of pleuritic chest pain. This could be related to muscle strain or costochondritis. Given her recent started on hormones and being on IVF we will do a d-dimer to rule out a pulmonary embolism. Ddimer is elevated and CT angio was done. CT is negative. Patient's test results and vitals while in the ED were fully reviewed and discussed with the patient. Patient is stable and at this time does not need admission to the hospital. We have discussed strict return precautions and the importance of following up with their Primary Care Physician. Patient stated understanding and was given an opportunity to ask any questions. Patient is in agreement with plan. Dragon Disclaimer Dragon Disclaimer This electronic medical record was generated, in whole or in part, using a voice recognition dictation system. Departure Departure: Disposition: 01 HOME/RESIDENCE PRIOR TO ADM Condition: STABLE Referrals: LUCA STEIN DO (PCP) Patient Instructions: Chest Pain (Nonspecific) Justification of Admission: Justification of Admission: Justification of Admission Dx: JOHN Cook MD Feb 24, 2020 10:03
[2020-02-24 10:10] LABS: CALCIUM 9.1 mg/dL (8.5-10.1); CREATININE 0.8 mg/dL (0.6-1.0); GFR 87.4; POTASSIUM 3.8 mmol/L (3.5-5.1)
[2020-02-24 10:15] LABS: ALBUMIN 3.6 g/dL (3.4-5.0); ALBUMIN/GLOBULIN RATIO 0.9 (1.0-1.7); TOTAL BILIRUBIN 0.2 mg/dL (0.2-1.0); TOTAL PROTEIN 7.7 g/dL (6.4-8.2)
[2020-02-24] MEDS ORDERED: IOHEXOL 350 MG/ML 100 ML VIAL. IV ONE (10:45)
[2020-02-24] MEDS ORDERED: CONTRAST GIVEN MC PRN (10:45)
[2020-02-24] MEDS ORDERED: IOHEXOL 300 MG/ML 75 ML VIAL. IV ONE (11:00)
--- NOTE | 2020-02-24 11:29 | RAD ---
Examination: CT angiography chest HISTORY: History of elevated d-dimer, chest pain COMPARISON: None available TECHNIQUE: Axial CT images of chest were performed with IV contrast. Coronal and sagittal 3-D MIP reformats are performed Exposure: One or more of the following individualized dose reduction techniques were utilized for this examination: 1. Automated exposure control 2. Adjustment of the mA and/or kV according to patient size 3. Use of iterative reconstruction technique FINDINGS: The visualized thyroid gland grossly appears unremarkable. The central airways are patent. The caliber of the aorta grossly appears unremarkable. There is no evidence of filling defect identified in the main pulmonary arterial trunk and right and left main pulmonary arteries and the visualized lobar, segmental branch of the pulmonary arteries. Mild bibasilar lung atelectasis. The liver, spleen, adrenals grossly appears unremarkable. No evidence of lytic bony destructive lesion. IMPRESSION: 1. No evidence of pulmonary embolism. 2. Minimal bibasilar lung atelectasis. Electronically signed by: Vince Diaz MD (02/24/2020 11:26 AM) [id number]
[2020-02-24 11:37] VITALS: BP 145/85
[2020-02-24] MEDS ORDERED: DEXAMETHASONE SOD PHOS 10 MG/ML VIAL IV ONE (11:45)
[2020-02-24] MEDS ORDERED: DEXAMETHASONE 4 MG TABLET PO ONE (11:45)
== END 2020-02-24 11:50 | disposition home or self-care (01) ==
LOC: ER 07:37
DX: R07.89 Other chest pain (principal); R79.1 Abnormal coagulation profile; F41.9 Anxiety disorder, unspecified; Z88.8 Allergy status to other drugs, medicaments and biological substances
CPT/HCPCS: 36415; 71046; 71275; 80053; 81001; 81025; 85025; 85379; 96374; 99285; J1100

== ENCOUNTER → 2020-03-01 | Outpatient (CLI) | payer OTHER ==
[2020-02-24 11:37] VITALS: BP 145/85
== END | disposition home or self-care (01) ==
LOC: LAB 07:07
PROVIDERS: ATTEND Internal Medicine Cardiovascular Disease
DX: Z20.828 Contact with and (suspected) exposure to other viral communicable diseases (principal)
CPT/HCPCS: C9803; U0003; 36415

== ENCOUNTER → 2020-03-08 | Outpatient (CLI) | payer OTHER ==
[2020-02-24 11:37] VITALS: BP 145/85
== END | disposition home or self-care (01) ==
LOC: LAB 00:15
PROVIDERS: ATTEND Internal Medicine Cardiovascular Disease
DX: Z20.828 Contact with and (suspected) exposure to other viral communicable diseases (principal)
CPT/HCPCS: C9803; U0003; 36415

== ENCOUNTER → 2020-03-21 | Outpatient (CLI) | payer OTHER ==
[2020-02-24 11:37] VITALS: BP 145/85
== END | disposition home or self-care (01) ==
LOC: LAB 23:37
PROVIDERS: ATTEND Internal Medicine Cardiovascular Disease
DX: Z20.828 Contact with and (suspected) exposure to other viral communicable diseases (principal)
CPT/HCPCS: U0003-CS

== ENCOUNTER → 2020-06-12 | Outpatient (CLI) | payer OTHER | LOC: LAB 11:00 | PROVIDERS: ATTEND Obstetrics & Gynecology Reproductive Endocrinology | DX: Z32.00 Encounter for pregnancy test, result unknown (principal) | CPT/HCPCS: 36415; 84702 ==

== ENCOUNTER → 2020-10-10 | Outpatient (CLI) | payer OTHER | LOC: LAB 10:26 | PROVIDERS: ATTEND Nurse Practitioner Women's Health | DX: Z31.41 Encounter for fertility testing (principal) | CPT/HCPCS: 36415; 84144 ==

== ENCOUNTER 2020-12-12 18:28 | Emergency (ER) | payer OTHER ==
[~2020-12-12] VITALS: Ht 157.5 cm; Wt 78.4 kg
[2020-12-12 19:03] VITALS: BP 147/96
--- NOTE | 2020-12-12 19:09 | PHYS DOC ---
Past History Past Medical History: Anxiety, Constipation Past Surgical History: Tonsillectomy Smoking: Non-smoker Alcohol Use: None Drug Use: None General Adult EDM: Chief Complaint: VAGINAL BLEEDING HPI: HPI: 25-year-old female presents with vaginal bleeding and . The patient had her second round of in vitro fertilization. Her last menstrual period was around 09 November. She had confirmed at her doctor's office. Today, she developed left-sided cramping and vaginal bleeding. She is concerned that this is a spontaneous miscarriage. Patient denies fever or chills. Review of Systems: Review of Systems: Constitutional: Denies fever or chills Eyes: Denies change in visual acuity HENT: Denies nasal congestion or sore throat Respiratory: Denies cough or shortness of breath Cardiovascular: Denies chest pain or edema GI: Denies abdominal pain, nausea, vomiting, bloody stools or diarrhea : Vaginal bleeding Musculoskeletal: Denies back pain or joint pain Integument: Denies rash Neurologic: Denies headache, focal weakness or sensory changes Endocrine: Denies polyuria or polydipsia Lymphatic: Denies swollen glands Psychiatric: Denies depression or anxiety Current Medications: Current Meds: Current Medications Medications (Trade) Dose Ordered Sig/Gil Start Time Stop Time Status Last Admin Dose Admin Sodium Chloride 1,000 ml @ 1,000 mls/hr 1X ONCE 12/12/20 19:15 12/12/20 20:14 UNV Allergies: Allergies: Allergies Coded Allergies Type Severity Reaction Last Updated Verified zolmitriptan Allergy Intermediate 07/14/17 Yes Physical Exam: PE: Constitutional: Well developed, well nourished, no acute distress, non-toxic appearance. [] HENT: Normocephalic, atraumatic, bilateral external ears normal, oropharynx moist, no oral exudates, nose normal. [] Eyes: PERRLA, EOMI, conjunctiva normal, no discharge. [] Neck: Normal range of motion, no tenderness, supple, no stridor. [] Cardiovascular: Heart rate regular rhythm, no murmur [] Lungs & Thorax: Bilateral breath sounds clear to auscultation [] Abdomen: Bowel sounds normal, soft, mild left lower quadrant tenderness, no masses, no pulsatile masses. [] Skin: Warm, dry, no erythema, no rash. [] Back: No tenderness, no CVA tenderness. [] Extremities: No tenderness, no cyanosis, no clubbing, ROM intact, no edema. [] Neurologic: Alert and oriented X 3, normal motor function, normal sensory function, no focal deficits noted. [] Psychologic: Affect normal, judgement normal, mood tearful. [] EKG: EKG: [] Radiology/Procedures: Radiology/Procedures: [] Impressions: Exam: Ultrasound OB less than 14 weeks Indication: Bleeding and Technique: Real-time grayscale and color Doppler images of the pelvis were obtained by the department lombardi developer. Comparisons: None FINDINGS: Uterus measures 7.5 x 5.2 x 5.7 cm. Endometrium measures 8 mm in thickness. No pole, gestational sac or yolk sac is identified. Left ovary measures 3.1 x 2.1 x 1.7 cm. Right ovary measures 2.8 x 2.3 x 1.8 cm. Vascular flow identified in the ovaries bilaterally. No free fluid. IMPRESSION: No pole, gestational sac or yolk sac identified. Intrauterine is not confirmed. Differential considerations include an early IUP, failed IUP or nonvisualized ectopic . Recommend correlation with serial beta hCG measurements and short-term follow-up ultrasound. Electronically signed by: Valentín Jacinto MD (12/12/2020 8:57 PM) [facility] DICTATED AND SIGNED BY: VALENTÍN JACINTO MD DATE: 12/12/202050 CC: BERTIN MILLAN DO; FERMIN PRITCHETT PA ~MTH0 0 Heart Score: C/O Chest Pain: N/A Risk Factors: Risk Factors: DM, Current or recent (<one month) smoker, HTN, HLP, family history of CAD, obesity. Risk Scores: Score 0 - 3: 2.5% MACE over next 6 weeks - Discharge Home Score 4 - 6: 20.3% MACE over next 6 weeks - Admit for Clinical Observation Score 7 - 10: 72.7% MACE over next 6 weeks - Early Invasive Strategies Course & Med Decision Making: Course & Med Decision Making Pertinent Labs and Imaging studies reviewed. (See chart for details) The patient's labs are unremarkable. Her urinalysis was compromised to excessive blood. Her hCG was 2. Ultrasound also showed no . This appears to be a miscarriage. I have informed the patient of these results. She will follow-up with her ELECTRIC WELDER HELPER as previously planned. She is stable for discharge at this time [] [place] Disclaimer: Dragon Disclaimer: This electronic medical record was generated, in whole or in part, using a voice recognition dictation system. Departure Departure: Impression: Primary Impression: Miscarriage Disposition: HOME / SELF CARE / HOMELESS Condition: STABLE Referrals: FERMIN PRITCHETT (PCP) Patient Instructions: Miscarriage, [id number] BERTIN MILLAN DO Dec 12, 2020 19:09
[2020-12-12] MEDS ORDERED: IV NORMAL SALINE 1,000ML 1,000 ML IV ONE (19:15)
[2020-12-12 19:38] LABS: BASO % 0 % (0-3); EOS # 0.2 x10^3/uL (0.0-0.7); EOS % 2 % (0-3); HEMATOCRIT 41.6 % (36.0-47.0); HEMOGLOBIN 13.4 g/dL (12.0-15.5); LYMPH # 3.9 x10^3/uL (1.0-4.8); LYMPH % 47 % (24-48); MEAN CORPUSCULAR HEMOGLOBIN 27 pg (25-35); MEAN CORPUSCULAR HGB CONC 32 g/dL (31-37); MEAN CORPUSCULAR VOLUME 84 fL (79-100); MONO # 0.7 x10^3/uL (0.0-1.1); MONO % 8 % (0-9); NEUT # 3.5 x10^3uL (1.8-7.7); NEUT % 42 % (31-73); PLATELET COUNT 297 x10^3/uL (140-400); RED BLOOD COUNT 4.99 x10^6/uL (3.50-5.40); RED CELL DISTRIBUTION WIDTH 13.5 % (11.5-14.5); WHITE BLOOD COUNT 8.2 x10^3/uL (4.0-11.0)
[2020-12-12 19:42] LABS: CLARITY,URINE BLOODY; COLOR,URINE RED
[2020-12-12 19:43] LABS: BACTERIA,URINE 0 /HPF (0-FEW); RBC,URINE TNTC /HPF (0-2)
[2020-12-12 19:44] LABS: CALCIUM 9.3 mg/dL (8.5-10.1); CREATININE 0.7 mg/dL (0.6-1.0); GFR 101.1; POTASSIUM 4.2 mmol/L (3.5-5.1)
[2020-12-12 19:50] LABS: ALBUMIN/GLOBULIN RATIO 1.2 (1.0-1.7); TOTAL BILIRUBIN 0.1 mg/dL (0.2-1.0); TOTAL PROTEIN 7.4 g/dL (6.4-8.2)
--- NOTE | 2020-12-12 20:59 | RAD ---
Exam: Ultrasound OB less than 14 weeks Indication: Bleeding and Technique: Real-time grayscale and color Doppler images of the pelvis were obtained by the department business continuity planner. Comparisons: None FINDINGS: Uterus measures 7.5 x 5.2 x 5.7 cm. Endometrium measures 8 mm in thickness. No pole, gestationa l sac or yolk sac is identified. Left ovary measures 3.1 x 2.1 x 1.7 cm. Right ovary measures 2.8 x 2.3 x 1.8 cm. Vascular flow identified in the ovaries bilaterally. No free fluid. IMPRESSION: No pole, gestational sac or yolk sac identified. Intrauterine is not confirmed. Diffe rential considerations include an early IUP, failed IUP or nonvisualized ectopic . Recommend correlation with serial beta hCG measurements and short-term follow-up ultrasound. Electronically signed by: Valentín Lamar MD (12/12/2020 8:57 PM) [facility]
[2020-12-12] MEDS ORDERED: LORazepam 1 MG TABLET ONE (21:07)
[2020-12-12] MEDS ORDERED: LORazepam 1 MG TABLET PO ONE (21:15)
== END 2020-12-12 21:10 | disposition home or self-care (01) ==
LOC: ER 18:28
DX: O03.9 Complete or unspecified spontaneous abortion without complication (principal); Z88.8 Allergy status to other drugs, medicaments and biological substances
CPT/HCPCS: 36415; 76801; 80053; 81001; 84702; 85025; 96360; 99284; J7030

== ENCOUNTER 2021-05-20 04:38 | Emergency (ER) | payer OTHER ==
[~2021-05-20] VITALS: Ht 157.5 cm; Wt 83.5 kg
--- NOTE | 2021-05-20 04:47 | PHYS DOC ---
Past History Past Medical History: Anxiety, Constipation, Depression (JOLEEN LU DO) Past Surgical History: Tonsillectomy (JOLEEN LU DO) Smoking: Non-smoker Alcohol Use: Rarely Drug Use: None (JOLEEN LU DO) Adult General HPI HPI Patient is a 26-year-old female presenting for postoperative pain. Patient reports having eggs harvested from local [employer] [facility] 3 days prior to arrival. Reports she has had ongoing generalized pelvic cramping and discomfort ever since. She was prescribed [place] 5 which she has been taking consistently with last dose taken 6 hours prior to arrival. Reports for past 12 hours pain has not been as well controlled, states day 3 is typically the worst but has been bothering her more than usual today prompting her to come in for pain control. Denies any fever, other known significant comorbid conditions besides anxiety depression, no blood thinners, no fever, no vision changes, no abdominal pain, no nausea vomit diarrhea. She also admits she took x2 400 mg ibuprofen without significant relief in symptoms. (JOLEEN LU DO) Review of Systems Review of Systems Fourteen body systems of review of systems have been reviewed. See HPI for pertinent positives and negative responses, other frye all other systems are negative, non-pertinent or non-contributory (JOLEEN LU DO) Allergies Allergies Allergies Coded Allergies Type Severity Reaction Last Updated Verified zolmitriptan Allergy Intermediate 07/14/17 Yes (JOLEEN LU DO) Physical Exam Physical Exam Constitutional: Well developed, well nourished, no acute distress, non-toxic appearance. HENT: Normocephalic, atraumatic, bilateral external ears normal, oropharynx moist, no oral exudates, nose normal. Eyes: PERRLA, EOMI, conjunctiva normal, no discharge. Neck: Normal range of motion, no tenderness, supple, no stridor. Cardiovascular: Heart rate regular, sinus rhythm, no murmurs rubs or gallops Lungs & Thorax: Bilateral breath sounds clear to auscultation Abdomen: Bowel sounds normal, soft, vague suprapubic tenderness and adnexal tenderness with palpation without guarding or rebound, no masses, no pulsatile masses. Nonsurgical abdomen, no peritoneal signs Skin: Warm, dry, no erythema, no rash. Back: No tenderness, no CVA tenderness. Extremities: No tenderness, no cyanosis, no clubbing, ROM intact, no edema. Neurologic: Alert and oriented X 3, grossly normal motor & sensory function, no focal deficits noted. Psychologic: Affect normal, judgement normal, depressed mood (JOLEEN LU DO) EKG EKG [] (JOLEEN LU DO) Radiology/Procedures Radiology/Procedures [] (JOLEEN LU DO) Heart Score C/O Chest Pain: No Risk Factors: Risk Factors: DM, Current or recent (<one month) smoker, HTN, HLP, family history of CAD, obesity. Risk Scores: Risk Factors: DM, Current or recent (<one month) smoker, HTN, HLP, family history of CAD, obesity. (JOLEEN LU DO) Course & Med Decision Making Course & Med Decision Making ABCs, history and physical examination non-concerning. There are no red flag signs of back pain present. I have low suspicion for malignancy/mets, acute Spinal Fracture, Vertebral Osteomyelitis, Epidural Abscess, Infected or Obstructing Kidney Stone. Their presentation appears most likely to be secondary to non-emergent musculoskeletal etiology vs non-emergent disc herniation. ED Workup: Defer imaging and labwork for outpatient follow up at this time. Disposition: Discharge. Strict return precautions discussed with patient with full understanding. Advised patient to follow up promptly with primary care provider (JOLEEN LU DO) Course & Med Decision Making The patient got a Toradol shot in the ER. I took over at 0 600. On reassessment, the patient is feeling better and her pain has decreased. She would like to go home. She is stable for discharge at this time. (BERTIN MILLAN DO) Dragon Disclaimer Dragon Disclaimer This electronic medical record was generated, in whole or in part, using a voice recognition dictation system. (JOLEEN LU DO) Departure Departure: Impression: Primary Impression: Other acute postprocedural pain Disposition: HOME / SELF CARE / HOMELESS Condition: STABLE Referrals: FERMIN PRITCHETT (PCP) Additional Instructions: You were evaluated in the Emergency Department today for back pain. Your evaluation suggests no acute abnormalities which require further intervention at this time. Your pain is most likely due to to a musculoskeletal cause that should improve with supportive care. - Move around as tolerated but avoiding heavy lifting. ``Bed rest is not recommended nor is it the best treatment for low back pain. - Medications will help control your discomfort: - -Ibuprofen (800 mg every 8 hours for pain) with food. - -Tylenol - Do not drink alcohol, drive a car, operate machinery, or get up on ladders or heights for following 12 hours after receiving antispasmodic medication in ER Return to the ED immediately if you develop any of the following problems: - Leaking urine or difficulty urinating; - Inability to control your bowels; - New numbness or weakness in your legs or numbness between your legs; - Inability to walk - Fever JOLEEN LU DO May 20, 2021 04:47 BERTIN MILLAN DO May 20, 2021 06:43
[2021-05-20 04:54] VITALS: BP 145/97
[2021-05-20] MEDS: oxyCODONE/APAP 5/325 1 TAB TABLET PO ONE (05:11)
[2021-05-20 05:18] LABS: BACTERIA,URINE 0 /HPF (0-FEW); BILIRUBIN,URINE NEG (NEG); CLARITY,URINE CLEAR; COLOR,URINE YELLOW; GLUCOSE,URINE NEG (NEG); NITRITE,URINE NEG (NEG); RBC,URINE OCC /HPF (0-2); SQUAMOUS EPITHELIAL CELL,UR FEW /LPF; UROBILINOGEN,URINE 0.2 mg/dL (0.2 mg/dL); WBC,URINE OCC /HPF (0-4)
[2021-05-20] MEDS: KETOROLAC 60 MG/2 ML VIAL. IM ONE (05:52)
[2021-05-20 06:01] LABS: U PREG PATIENT POSITIVE (NEG)
== END 2021-05-20 06:49 | disposition home or self-care (01) ==
LOC: ER 04:38
DX: G89.18 Other acute postprocedural pain (principal); F41.9 Anxiety disorder, unspecified; F32.9 Major depressive disorder, single episode, unspecified; Z88.8 Allergy status to other drugs, medicaments and biological substances
CPT/HCPCS: 81001; 81025; 96372; 99283; J1885